=== PATIENT | male | born 1990 | race Caucasian/White ===

== ENCOUNTER 2016-08-31 21:11 | Emergency (ER) | payer SELFPAY | END 2016-08-31 22:25 | disposition left against medical advice (07) | LOC: ER 21:11 | DX: Z53.9 Procedure and treatment not carried out, unspecified reason (principal) ==

== ENCOUNTER 2016-09-01 18:49 | Emergency (ER) | payer SELFPAY ==
[2016-09-01 18:54] VITALS: BP 153/86
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
== END 2016-09-01 21:45 | disposition left against medical advice (07) ==
LOC: ER 18:49
DX: S00.12XA Contusion of left eyelid and periocular area, initial encounter (principal); R51 Headache; Y04.2XXA Assault by strike against or bumped into by another person, initial encounter; S00.83XA Contusion of other part of head, initial encounter; R55 Syncope and collapse; R11.0 Nausea; M54.2 Cervicalgia
CPT/HCPCS: 70450; 99281